=== PATIENT | male | born 1995 | race Caucasian/White ===

== ENCOUNTER 2017-05-14 23:57 | Emergency (ER) | payer OTHER ==
[~2017-05-14] VITALS: Ht 190.5 cm; Wt 71.1 kg
[2017-05-14 23:59] VITALS: BP 145/86
[2017-05-15 02:36] LABS: MICROSCOPIC NOT IND
[2017-05-15 02:38] LABS: CULTURE INDICATED? NO
[2017-05-15 02:46] LABS: AMPHETAMINE SCREEN, URINE Negative (Negative); BARBITURATE SCREEN, URINE Negative (Negative); BENZODIAZEPINE SCREEN, URINE Negative (Negative); CANNABINOID SCREEN, URINE Positive (Negative); COCAINE SCREEN, URINE Negative (Negative); METHADONE SCREEN, URINE Negative (Negative); OPIATE SCREEN, URINE Negative (Negative)
== END 2017-05-15 03:48 | disposition home or self-care (01) ==
LOC: ED 05-15 01:31
DX: R33.0 Drug induced retention of urine (principal); F12.10 Cannabis abuse, uncomplicated
CPT/HCPCS: 80307; 81003; 99284; G0479

== ENCOUNTER 2017-06-23 01:38 | Emergency (ER) | payer OTHER ==
[~2017-06-23] VITALS: Ht 193 cm; Wt 69.0 kg
[2017-06-23] MEDS ORDERED: LORazepam 1MG TABLET ONE (02:14)
[2017-06-23] MEDS ORDERED: ONDANSETRON ODT 4 MG ONE (02:14)
[2017-06-23 02:29] LABS: BASOPHILS # (AUTO) 0.05 x10^3/uL (0-0.3); BASOPHILS % (AUTO) 0 % (0-1); EOSINOPHILS # (AUTO) 0.24 x10^3/uL (0-0.8); EOSINOPHILS % (AUTO) 2 % (1-7); LYMPHOCYTES # (AUTO) 2.33 x10^3/uL (1-6.1); LYMPHOCYTES % (AUTO) 22 % (22-44); MD NO; MEAN CORPUSCULAR HEMOGLOBIN 29.9 pg (27.5-34.5); MEAN CORPUSCULAR HGB CONC 34.4 g/dL (33.2-36.2); MEAN CORPUSCULAR VOLUME 86.8 fL (81-97); MEAN PLATELET VOLUME 8.1 fL (7.4-10.4); MONOCYTES # (AUTO) 0.53 x10^3/uL (0-1.4); MONOCYTES % (AUTO) 5 % (2-9); NEUTROPHILS # (AUTO) 7.38 x10^3/uL (1.8-8.0); NEUTROPHILS % (AUTO) 70 % (42-75); PLATELET COUNT 225 x10^3/uL (130-400); RED BLOOD COUNT 4.91 x10^6/uL (4.38-5.82); RED CELL DISTRIBUTION WIDTH 12.6 % (9.4-14.8)
[2017-06-23] MEDS ORDERED: LORazepam 1MG TABLET PO ONE (02:30)
[2017-06-23] MEDS ORDERED: ONDANSETRON ODT 4 MG PO ONE (02:30)
[2017-06-23 02:42] LABS: ALBUMIN 4.4 g/dL (3.4-5.0); ANION GAP 9 mmol/L (5-15); CALCIUM 8.5 mg/dL (8.5-10.1); CHLORIDE 104 mmol/L (98-107); CREATININE 1.16 mg/dL (0.7-1.3); T4 (THYROXINE) 9.5 mcg/dL (4.5-12.1)
[2017-06-23 03:21] VITALS: BP 132/69
== END 2017-06-23 03:21 | disposition home or self-care (01) ==
LOC: ED 02:27
DX: R55 Syncope and collapse (principal); F41.1 Generalized anxiety disorder
CPT/HCPCS: 36415; 80048; 82040; 84436; 84443; 85025; 93005; 99285; Q0162